=== PATIENT | male | born 1995 | race Hispanic/Latino ===

== ENCOUNTER 2017-06-09 07:48 | Emergency (ER) | payer SELFPAY ==
[2017-06-09 08:10] LABS: APPEARANCE,URINE Clear (CLEAR); BILIRUBIN,URINE Negative (NEGATIVE); COLOR,URINE Yellow (YELLOW); GLUCOSE, URINE (UA) Negative (NEGATIVE); KETONES,URINE Negative (NEGATIVE); LEUKOCYTE ESTERASE ,URINE Negative (NEGATIVE); NITRATE,URINE Negative (NEGATIVE); OCCULT BLOOD,URINE Negative (NEGATIVE); PROTEIN,URINE Negative (NEGATIVE)
[2017-06-09 08:19] LABS: BASOPHILS % (AUTO) 1.1 % (0.0-5.0); EOSINOPHILS % (AUTO) 6.4 % (0.0-8.0); HEMATOCRIT 41.9 % (42-54); LYMPHOCYTES % (AUTO) 28.3 % (21.0-51.0); MEAN CORPUSCULAR HEMOGLOBIN 30.5 pg (27.0-33.0); MEAN CORPUSCULAR VOLUME 89.7 fL (80-100); NEUTROPHILS % (AUTO) 56.2 % (40.0-77.0); NUCLEATED RED BLOOD CELLS 0.1 % (0.0-0.19); PLATELET COUNT (AUTO) 258 K/uL (130-400); RED BLOOD CELL COUNT(AUTO) 4.67 MIL/uL (4.50-6.20); RED CELL DISTRIBUTION WIDTH 13.8 % (11.0-15.5); WHITE BLOOD COUNT (AUTO) 8.3 K/uL (4.8-10.8)
[2017-06-09 08:26] LABS: CREATININE 0.8 mg/dL (0.5-1.5)
[2017-06-09] MEDS ORDERED: KETOROLAC TROMETHAMINE 60 MG/2 ML VIAL ONE (08:31)
[2017-06-09 08:32] LABS: ALBUMIN 3.7 g/dL (3.5-5.0); BILIRUBIN,TOTAL 0.3 mg/dL (0.2-1.0); TOTAL PROTEIN, SERUM 7.5 g/dL (6.0-8.3)
== END 2017-06-09 10:11 | disposition home or self-care (01) ==
LOC: EDH 07:48
DX: M54.5 Low back pain (principal); R10.9 Unspecified abdominal pain
CPT/HCPCS: 72100; 36415; 80053; 81003; 82150; 83690; 85025; 96374; 99285; J1885

== ENCOUNTER 2018-01-28 07:54 | Emergency (ER) | payer SELFPAY ==
[2018-01-28] MEDS ORDERED: ACETAMINOPHEN 325 MG TAB ONE (08:12)
[2018-01-28 08:29] LABS: APPEARANCE,URINE Clear (CLEAR); BILIRUBIN,URINE Negative (NEGATIVE); COLOR,URINE Yellow (YELLOW); GLUCOSE, URINE (UA) Negative (NEGATIVE); KETONES,URINE Negative (NEGATIVE); LEUKOCYTE ESTERASE ,URINE Negative (NEGATIVE); NITRATE,URINE Negative (NEGATIVE); OCCULT BLOOD,URINE Negative (NEGATIVE); PH,URINE 5.5 (5.0-8.0); PROTEIN,URINE Negative (NEGATIVE); UROBILINOGEN,URINE 0.2 mg/dL (0.2-1.0)
== END 2018-01-28 09:10 | disposition home or self-care (01) ==
LOC: EDH 07:54
DX: R10.9 Unspecified abdominal pain (principal); Z88.0 Allergy status to penicillin; Z72.0 Tobacco use
CPT/HCPCS: 81003

== ENCOUNTER 2018-03-07 17:51 | Emergency (ER) | payer OTHER ==
[2018-03-07] MEDS ORDERED: KETOROLAC TROMETHAMINE 30MG/ML ONE (18:30)
[2018-03-07 18:46] LABS: EOSINOPHILS % (AUTO) 3.5 % (0.0-8.0); HEMATOCRIT 41.1 % (42-54); LYMPHOCYTES % (AUTO) 36.8 % (21.0-51.0); MEAN CORPUSCULAR HGB CONC 34.7 g/dL (32.0-36.0); MEAN CORPUSCULAR VOLUME 92.2 fL (80-100); MONOCYTES % (AUTO) 10.1 % (3.0-13.0); NEUTROPHILS % (AUTO) 48.6 % (40.0-77.0); NUCLEATED RED BLOOD CELLS 0.1 % (0.0-0.19); PLATELET COUNT (AUTO) 264 K/uL (130-400); RED BLOOD CELL COUNT(AUTO) 4.46 MIL/uL (4.50-6.20); RED CELL DISTRIBUTION WIDTH 13.3 % (11.0-15.5); WHITE BLOOD COUNT (AUTO) 7.3 K/uL (4.8-10.8)
[2018-03-07 18:47] LABS: APPEARANCE,URINE Clear (CLEAR); BILIRUBIN,URINE Negative (NEGATIVE); COLOR,URINE Yellow (YELLOW); GLUCOSE, URINE (UA) Negative (NEGATIVE); KETONES,URINE Negative (NEGATIVE); LEUKOCYTE ESTERASE ,URINE Negative (NEGATIVE); NITRATE,URINE Negative (NEGATIVE); OCCULT BLOOD,URINE Negative (NEGATIVE); PROTEIN,URINE Negative (NEGATIVE)
[2018-03-07 19:03] LABS: ALBUMIN 3.6 g/dL (3.5-5.0); BILIRUBIN,TOTAL 0.2 mg/dL (0.2-1.0); TOTAL PROTEIN, SERUM 7.2 g/dL (6.0-8.3)
[2018-03-07] MEDS ORDERED: LIDOCAINE HCL 2% VISCOUS 15 ML UDCUP ONE (19:14)
[2018-03-07] MEDS ORDERED: MAGNESIUM HYDROXIDE 30 ML/UDCUP ONE (19:14)
== END 2018-03-07 19:52 | disposition home or self-care (01) ==
LOC: EDH 17:51
DX: R10.11 Right upper quadrant pain (principal); Z88.0 Allergy status to penicillin
CPT/HCPCS: 36415; 76705; 80053; 81003; 83690; 85025; 96374; 99285; J1885

== ENCOUNTER 2020-08-05 01:41 | Emergency (ER) | payer OTHER ==
[2020-08-05 02:06] LABS: APPEARANCE,URINE Clear (CLEAR); BILIRUBIN,URINE Negative (NEGATIVE); COLOR,URINE Yellow (YELLOW); GLUCOSE, URINE (UA) Negative (NEGATIVE); KETONES,URINE Negative (NEGATIVE); LEUKOCYTE ESTERASE ,URINE Negative (NEGATIVE); NITRATE,URINE Negative (NEGATIVE); OCCULT BLOOD,URINE Negative (NEGATIVE); PH,URINE 6.5 (5.0-8.0); PROTEIN,URINE Negative (NEGATIVE)
[2020-08-05] MEDS ORDERED: KETOROLAC TROMETHAMINE 60 MG/2 ML VIAL ONE (02:26)
[2020-08-05] MEDS ORDERED: LIDOCAINE 5% TOPICAL PATCH TP ONE (02:26)
[2020-08-05] MEDS ORDERED: ORPHENADRINE CITRATE 30 MG/ML ML ONE (02:26)
== END 2020-08-05 02:44 | disposition home or self-care (01) ==
LOC: EDH 01:41
DX: M62.830 Muscle spasm of back (principal); M54.5 Low back pain; Z88.0 Allergy status to penicillin
CPT/HCPCS: 81003; 96372 ×2; 99284; J1885; J2360

== ENCOUNTER 2021-03-18 08:02 | Emergency (ER) | payer SELFPAY ==
[~2021-03-18] VITALS: Ht 165.1 cm; Wt 127.5 kg
[2021-03-18 08:03] VITALS: BP 117/77
[2021-03-18] MEDS ORDERED: IBUPROFEN 600 MG TABLET PO ONE (09:00)
[2021-03-18] MEDS ORDERED: IBUPROFEN 600 MG TABLET ONE (09:04)
[2021-03-18] MEDS ORDERED: IBUP-2070 PO (09:14)
== END 2021-03-18 09:56 | disposition home or self-care (01) ==
LOC: EDH 08:02
DX: S96.911A Strain of unspecified muscle and tendon at ankle and foot level, right foot, initial encounter (principal); E66.9 Obesity, unspecified; Z88.0 Allergy status to penicillin; Z68.41 Body mass index [BMI] 40.0-44.9, adult; X50.1XXA Overexertion from prolonged static or awkward postures, initial encounter; Y93.89 Activity, other specified; Y92.89 Other specified places as the place of occurrence of the external cause; Y99.8 Other external cause status
CPT/HCPCS: 73610; 73630

== ENCOUNTER 2023-04-01 12:54 | Emergency (ER) | payer BC ==
[~2023-04-01] VITALS: Ht 165.1 cm; Wt 110.7 kg
[~2023-04-01 12:54] MED LIST: IBUP-2070 PO
[2023-04-01 13:41] VITALS: BP 132/74; PULSE 111; RESP 16; O2SAT 98
[2023-04-01 14:42] LABS: COVID19 (SARS ANTIGEN RAPID) PRESUMPTIVE NEGATIVE (NEGATIVE)
[2023-04-01 14:43] LABS: INFLUENZA TYPE A Negative For Type A (NEGATIVE); INFLUENZA TYPE B Negative For Type B (NEGATIVE)
[2023-04-01] MEDS ORDERED: IBUP-2070 PO (15:49)
[2023-04-01] MEDS ORDERED: BENZ-39 PO (15:49)
[2023-04-01] MEDS ORDERED: ACETAMINOPHEN 500 MG TABLET PO ONE (16:00)
[2023-04-01 16:07] VITALS: TEMP 100
== END 2023-04-01 16:15 | disposition home or self-care (01) ==
LOC: EDH 12:54
DX: R07.89 Other chest pain (principal); R05.9 Cough, unspecified; Z20.822 Contact with and (suspected) exposure to COVID-19; Z79.899 Other long term (current) drug therapy; Z88.0 Allergy status to penicillin
CPT/HCPCS: 71045; 87426; 87804; 93005